=== PATIENT | male | born 1980 | race Caucasian/White ===

== ENCOUNTER 2017-08-25 03:51 | Emergency (ER) | payer MEDICAID ==
[~2017-08-25] VITALS: Ht 152.4 cm; Wt 69.0 kg
[2017-08-25] MEDS ORDERED: ACETAMINOPHEN 325MG TABLET PO ONE (04:45)
[2017-08-25] MEDS ORDERED: AZITHROMYCIN 250 MG TABLET PO ONE (04:45)
[2017-08-25] MEDS ORDERED: KETOROLAC 60MG/2ML VIAL IM ONE (04:45)
[2017-08-25 07:11] LABS: GLUCOSE URINE NEGATIVE (NEGATIVE); KETONES URINE NEGATIVE (NEGATIVE); LEUKOCYTE ESTERASE URINE NEGATIVE (NEGATIVE); NITRITE URINE NEGATIVE (NEGATIVE); OCCULT BLOOD URINE NEGATIVE (NEGATIVE); PH URINE 6.5 (4.5-8.0); PROTEIN URINE NEGATIVE (NEGATIVE); SPECIFIC GRAVITY URINE 1.018 (1.005-1.030); UROBILINOGEN URINE 0.2 E.U./dL (0.2-1.0)
[2017-08-25 07:13] LABS: CLARITY URINE CLEAR (CLEAR); COLOR URINE YELLOW (YELLOW)
[2017-08-25 07:26] VITALS: BP 108/65
== END 2017-08-25 07:30 | disposition home or self-care (01) ==
LOC: ER 04:15
DX: B34.9 Viral infection, unspecified (principal)
CPT/HCPCS: 81003; 96372; 99283; J1885

== ENCOUNTER 2020-12-22 18:40 | Emergency (ER) | payer MEDICAID ==
[~2020-12-22] VITALS: Ht 170.2 cm; Wt 73.0 kg
[2020-12-22] MEDS ORDERED: HYDROCODONE/ACETAMINOPHEN 5/325MG TABLET PO ONE (21:30)
[2020-12-22 22:30] VITALS: BP 125/79
== END 2020-12-22 22:15 | disposition home or self-care (01) ==
LOC: ER 18:40
DX: S50.01XA Contusion of right elbow, initial encounter (principal); W22.8XXA Striking against or struck by other objects, initial encounter; Y93.89 Activity, other specified; Y92.89 Other specified places as the place of occurrence of the external cause; Y99.8 Other external cause status
CPT/HCPCS: 29125; 73060; 73080; 73090; 99284

== ENCOUNTER 2021-11-14 06:32 | Emergency (ER) | payer MEDICAID ==
[~2021-11-14] VITALS: Ht 170.2 cm; Wt 75.6 kg
[2021-11-14] MEDS ORDERED: ACETAMINOPHEN 325MG TABLET PO STA (07:39)
[2021-11-14] MEDS ORDERED: ACET-2708 MT (10:20)
[2021-11-14 10:37] VITALS: BP 142/65
== END 2021-11-14 10:38 | disposition home or self-care (01) ==
LOC: ER 06:32
DX: U07.1 COVID-19 (principal); B34.9 Viral infection, unspecified; Z79.899 Other long term (current) drug therapy
CPT/HCPCS: 71045; 87426; 93005; 99284